=== PATIENT | male | born 1955 | race Caucasian/White ===

== ENCOUNTER 2019-02-21 20:28 | Observation (INO) ==
[2019-02-21] MEDS ORDERED: *HR* FentaNYL (PF) 100 MCG/2 ML VIAL IVP ONE (20:48)
--- NOTE | 2019-02-21 20:52 | Emergency Department Note ---
Disposition Clinical Impression: Cellulitis Qualifiers: Site of cellulitis: extremity Site of cellulitis of extremity: upper extremity Laterality: left Qualified Code(s): L03.114 - Cellulitis of left upper limb Disposition: Admitted As Inpatient Condition: Fair Instructions: Cellulitis (ED) Referrals: Geoffrey Suazo DO [Primary Care Provider] - Forms: ED Satisfaction Letter Time of Disposition: 22:21 Fever HPI - General Chief Complaint: ED Extremity Problem,Nontraumatic Stated Complaint: L Hand/arm pain Time Seen by Provider: 02/21/19 20:37 Source: patient Limitations: language barrier Nursing Notes Reviewed: Yes Vital Signs Reviewed: Yes - History of Present Illness HPI Narrative: 63-year-old male presents for evaluation of fever, lethargy, and swollen left upper extremity. Patient noticed redness and swelling to his arm yesterday. He today developed fever and according to significant other has been lethargic and sleeping all day in bed. Patient has mild to moderate amount of pain located to his wrist forearm. - Related Data Home Medications Medication Instructions Recorded Confirmed Albuterol Sulfate [Proair Hfa] 2 puff IH Q4H PRN 03/17/17 02/21/19 Benazepril/Hydrochlorothiazide 1 tab PO DAILY 03/17/17 02/21/19 [Lotensin Hct 20-12.5 mg Tablet] FluocinoNIDE 0.05% CRM [Lidex] 1 appl TP BID PRN 03/17/17 02/21/19 Pantoprazole Sodium [Protonix] 40 mg PO DAILY 03/17/17 02/21/19 Simvastatin [Zocor] 20 mg PO HS 03/17/17 02/21/19 amLODIPine [Norvasc] 5 mg PO DAILY 03/17/17 02/21/19 Previous Rx's Medication Instructions Recorded Metoprolol XL (24 HR) Succ [Toprol 25 mg PO DAILY #20 tab.er.24h 03/19/17 Xl] Allergies Allergy/AdvReac Type Severity Reaction Status Date / Time No Known Allergies Allergy Verified 02/21/19 20:45 Review of Systems: Constitutional: See history of present illness HENT: [Negative for congestion.] Eyes: [Negative for discharge.] Respiratory: [Negative for shortness of breath.] Cardiovascular: [Negative for chest pain.] Gastrointestinal: [Negative for nausea, vomiting, abdominal pain and diarrhea.] Endocrine: [Negative for excessive thirst,urination] Genitourinary: [Negative for dysuria and frequency.] Musculoskeletal: [Negative for myalgias and arthralgias.] Skin: See The history of present illness Neurological: [Negative for dizziness, localized weakness and headaches.] Psychiatric/Behavioral: [Negative for nervous/anxious.] All other systems reviewed and are negative. Fever PMH - Past Medical History Medical history: Reports: CVA, hyperlipidemia, hypertension, TIA Surgical history: Reports: no surgical history Psychiatric history: Reports: no psych history - Social History Smoking Status: Current every day smoker Alcohol use: Reports: none Drug use: Reports: none Physical Exam Constitutional: Patient is [alert], [healthy], [comfortable and asymptomatic] and cooperative. HENT: Head: Normocephalic and atraumatic. Right Ear: External ear normal. Left Ear: External ear normal. Nose: Nose without discharge Mouth/Throat: Mucous membranes show good hydration Eyes: Conjunctivae and EOM are normal. Pupils are round and equal. Right eye exhibits no discharge. Left eye exhibits no discharge. Neck: Normal range of motion and phonation normal. Neck supple. Pulmonary/Chest: Effort normal. No stridor. No tachypnea. No respiratory distress. Musculoskeletal: Normal range of motion of all unaffected extremeties. Left upp er extremity shows significant warmth to touch. He has erythema and induration of the skin from his hand all the way up the dorsal arm to his elbow. Neurological: Patient is alert and awake. Patient moves all 4 extremities equally. There is no atrophy and no tremor. No gross cranial nerve deficit and there exhibits normal muscle tone. Coordination normal grossly. Skin: Skin is warm and dry. No erythema. No rash noted Psychiatric: Patient has a normal mood and affect. Course Course Narrative: [ ] Discussed diagnosis and further treatment plans with patient [and significant other]. Questions addressed. Patient was discussed with Dr. King who agrees with admission for observation status for overnight antibiotics Vital Signs Temperature 100.4 F H 02/21/19 20:39 Pulse Rate 116 02/21/19 20:39 Respiratory Rate 28 02/21/19 20:39 Blood Pressure 188/122 02/21/19 20:39 O2 Sat by Pulse Oximetry 96 02/21/19 20:39 Temperature 100.4 F H 02/21/19 20:39 Pulse Rate 74 02/21/19 22:02 Respiratory Rate 18 02/21/19 22:02 Blood Pressure 158/91 02/21/19 22:02 O2 Sat by Pulse Oximetry 96 02/21/19 20:39 Oxygen Delivery Oxygen Delivery Room Air Fever - Differential Diagnosis Likely: cellulitis, sepsis, SIRS. Unlikely: community acquired pneumonia, pyelonephritis, viral infection, influenza - Lab Data Lab results reviewed: Yes I reviewed the patient's lab results. Result diagrams: 02/21/19 21:10 02/21/19 21:10 Lab Results 02/21/19 02/21/19 02/21/19 Range/Units 21:10 21:10 21:10 WBC 13.6 H (4.3-11.1) K/mcL RBC 4.49 (4.19-5.50) M/mcL Hgb 14.8 (12.9-16.9) g/dL Hct 42.6 (37.5-50.1) % MCV 94.9 (83.0-100.0) fL MCH 33.0 (28.0-33.3) pg MCHC 34.7 (31.6-35.5) g/dL RDW 12.0 (11.5-14.5) % Plt Count 179 (140-400) K/mcL MPV 10.5 (9.4-12.4) fL Immature Gran % 0.4 (0-4) % Seg Neutrophils % 77.2 % Lymphocytes % 14.3 % Monocytes % 6.8 % Eosinophils % 0.7 % Basophils % 0.6 % Neutrophils # 10.5 H (1.6-8.9) K/mcL Lymphocytes # 1.9 (0.6-4.6) K/mcL Monocytes # 0.9 (0.0-1.3) K/mcL Eosinophils # 0.1 (0.0-0.6) K/mcL Basophils # 0.1 (0.0-0.2) K/mcL Sodium 133 L (136-145) mEq/L Potassium 3.5 (3.5-5.1) mEq/L Chloride 101 (98-107) mEq/L Carbon Dioxide 22 L (23-29) mEq/L BUN 13 (8-23) mg/dL Creatinine 1.09 (0.70-1.30) mg/dL Est GFR ( Amer) > 60 (> 60) Est GFR (Non-Af Amer) > 60 (> 60) BUN/Creatinine Ratio 12 (6-26) Glucose 148 H (70-105) mg/dL Calculated Osmolality 279 L (280-300) Lactic Acid 1.0 (0.5-2.2) mmol/L Calcium 9.2 (8.6-10.3) mg/dL Total Bilirubin 0.7 (0.3-1.0) mg/dL Direct Bilirubin 0.2 (0.0-0.2) mg/dL Indirect Bilirubin 0.5 (0.0-1.2) mg/dL AST 17 (13-39) Units/L ALT 34 (7-52) Units/L Alkaline Phosphatase 66 (34-104) Units/L Serum Total Protein 6.7 (6.4-8.9) g/dL Albumin 4.1 (3.5-5.7) g/dL Globulin 2.6 (2.4-3.5) g/dL Albumin/Globulin Ratio 1.6 (1.1-2.2)
[2019-02-21 21:25] LABS: Basophils # 0.1 K/mcL (0.0-0.2); Basophils % 0.6 %; Eosinophils # 0.1 K/mcL (0.0-0.6); Eosinophils % 0.7 %; Hematocrit 42.6 % (37.5-50.1); Hemoglobin 14.8 g/dL (12.9-16.9); Immature Granulocytes % 0.4 % (0-4); Lymphocytes # 1.9 K/mcL (0.6-4.6); Lymphocytes % 14.3 %; Mean Corpuscular HGB Conc 34.7 g/dL (31.6-35.5); Mean Corpuscular Volume 94.9 fL (83.0-100.0); Mean Platelet Volume 10.5 fL (9.4-12.4); Monocytes # 0.9 K/mcL (0.0-1.3); Monocytes % 6.8 %; Neutrophils # 10.5 K/mcL (1.6-8.9); Platelet Count 179 K/mcL (140-400); Red Blood Count 4.49 M/mcL (4.19-5.50); Segmented Neutrophils % 77.2 %; White Blood Count 13.6 K/mcL (4.3-11.1)
[2019-02-21 21:40] LABS: Alanine Aminotransferase 34 Units/L (7-52); Albumin 4.1 g/dL (3.5-5.7); Albumin/Globulin Ratio 1.6 (1.1-2.2); Alkaline Phosphatase 66 Units/L (34-104); Aspartate Amino Transferase 17 Units/L (13-39); BUN/Creatinine Ratio 12 (6-26); Bilirubin,Direct 0.2 mg/dL (0.0-0.2); Bilirubin,Indirect 0.5 mg/dL (0.0-1.2); Bilirubin,Total 0.7 mg/dL (0.3-1.0); Blood Urea Nitrogen 13 mg/dL (8-23); Calcium 9.2 mg/dL (8.6-10.3); Carbon Dioxide 22 mEq/L (23-29); Chloride 101 mEq/L (98-107); Globulin 2.6 g/dL (2.4-3.5); Glucose 148 mg/dL (70-105); Osmolality,Calculated 279 (280-300); Potassium 3.5 mEq/L (3.5-5.1); Sodium 133 mEq/L (136-145); Total Protein 6.7 g/dL (6.4-8.9); eGFR For African Americans > 60 (> 60); eGFR For Non-African Americans > 60 (> 60)
[2019-02-21] MEDS ORDERED: Naloxone 0.4 MG/ML INJ IVP PRN (22:12)
[2019-02-21] MEDS ORDERED: FluocinoNIDE 0.05% CRM 15 GM TUBE TP PRN (22:18)
[2019-02-22] MEDS ORDERED: Naloxone 0.4 MG/ML INJ IVP PRN (08:49)
[2019-02-22 09:18] LABS: Basophils # 0.1 K/mcL (0.0-0.2); Eosinophils # 0.1 K/mcL (0.0-0.6); Eosinophils % 0.5 %; Hemoglobin 13.9 g/dL (12.9-16.9); Immature Granulocytes % 0.3 % (0-4); Lymphocytes # 1.2 K/mcL (0.6-4.6); Mean Corpuscular HGB Conc 34.8 g/dL (31.6-35.5); Mean Platelet Volume 10.2 fL (9.4-12.4); Monocytes # 0.8 K/mcL (0.0-1.3); Monocytes % 7.3 %; Neutrophils # 9.3 K/mcL (1.6-8.9); Platelet Count 158 K/mcL (140-400); Red Blood Count 4.21 M/mcL (4.19-5.50); Segmented Neutrophils % 80.9 %; White Blood Count 11.5 K/mcL (4.3-11.1)
[2019-02-22] MEDS: Metoprolol XL (24 HR) Succ 25 MG TAB.ER.24H PO SCH (10:57)
[2019-02-22] MEDS: amLODIPine 5 MG TABLET PO SCH (10:57)
[2019-02-22] MEDS: Lisinopril-HCTZ 20-12.5mg TABLET PO SCH (10:57)
--- NOTE | 2019-02-22 12:02 | Internal Med History&Physical ---
Date of Encounter: 02/22/19 Time of Encounter: 11:58 Assessment and Plan (1) Cellulitis Current visit: Yes Status: Acute Continue IV antibiotics. Monitor. Qualifiers: Site of cellulitis: extremity Site of cellulitis of extremity: upper extremity Laterality: left Qualified Code(s): L03.114 - Cellulitis of left upper limb (2) HTN (hypertension), benign Current visit: Yes Status: Chronic Controlled with current medication. Monitor. Internal Medicine - H&P: HPI Admitted From: Home Plans for Post Hospital Care: Home History of present illness: Mr. Walters is a 63 year old male admitted to unit for observation after presenting to the emergency room last night for for evaluation of fever, lethargy, and swollen left upper extremity. Painful to touch. Patient noticed redness and swelling to his arm 2 days ago. States he was also very lethargic and all day. Unaware of any injury or bite or wound. Currently lying in bed denies fever, chills, nausea vomiting or diarrhea. Denies shortness of breath or chest pain. Has received IV antibiotics. D dimer was elevated, will order further testing. Lives at home with and 3 dogs. is a 1.5-2 pk per day smoker for the past 40 years. Nurse reports patient had confusion yesterday and did not know any of his medications. Patient is able to recall all medications and is alert and oriented today. Has history of CVA and TIAs, hypertension, hyperlipidemia and Gerd. Past Med Surg Social Fam HX - Past Medical History Medical history: CVA, GERD, hyperlipidemia, hypertension, TIA Additional medical history: Smoker Psychiatric history: no psych history - Past Surgical History Surgical History: no surgical history - Social History Smoking Status: Current every day smoker Smokeless Tobacco Status: No Alcohol use: none Drug use: none - Family History Mother Living Status: Hx Family Cancer: Yes (Cervical Cancer) Father Living Status: Hx Family Cardiac Disorders: Yes (Multiple MN's) Internal Medicine - H&P: Meds Albuterol Sulfate [Proair Hfa] 2 puff IH Q4H PRN 03/17/17 [History] Benazepril/Hydrochlorothiazide [Lotensin Hct 20-12.5 mg Tablet] 1 tab PO DAILY 03/17/17 [History] FluocinoNIDE 0.05% CRM [Lidex] 1 appl TP BID PRN 03/17/17 [History] Pantoprazole Sodium [Protonix] 40 mg PO DAILY 03/17/17 [History] Simvastatin [Zocor] 20 mg PO HS 03/17/17 [History] amLODIPine [Norvasc] 5 mg PO DAILY 03/17/17 [History] Metoprolol XL (24 HR) Succ [Toprol Xl] 25 mg PO DAILY #20 tab.er.24h 03/19/17 [Rx] Aspirin [[place] Aspirin EC] 81 mg PO DAILY 02/21/19 [History] Allergy/AdvReac Type Severity Reaction Status Date / Time No Known Allergies Allergy Verified 02/21/19 20:45 All Systems PM: A 10-system review of systems was performed and is negative for pertinent findings except as documented above in the HPI. - Constitutional Constitutional: no chills, no fever(s), no night sweats - EENT Eyes: no change in vision, no discharge, no pain, no photophobia Ears: no ear discharge, no ear pain, no tinnitus Nose, mouth and throat: no dysphagia, no nasal discharge, no neck pain, no sore throat - Cardiovascular Cardiovascular ROS IM: no chest pain, no diaphoresis, no dyspnea, no lightheadedness, no palpitations, no syncope - Respiratory Respiratory: no cough, no dyspnea, no wheezing, no excessive phlegm production - Gastrointestinal Gastrointestinal: no abdominal pain, no diarrhea, no hematemesis, no hematochezia, no melena, no nausea, no vomiting - Musculoskeletal Musculoskeletal ROS IM: no numbness, no tingling - Integumentary Integumentary IM: no rash, no unusual bruising - Neurological Neurological ROS: no confusion, no convulsions, no focal weakness, no numbness, no tingling, no tremor(s) - Hematologic/Lymphatic Hematologic/Lymphatic: no easy bruising - Constitutional Vitals: Temp Pulse Resp BP Pulse Ox 98.7 F 69 16 147/72 98 02/22/19 07:55 02/22/19 07:55 02/22/19 07:55 02/22/19 07:55 02/22/19 07:55 General appearance: Present: cooperative, A&O X 3, pleasant, no acute distress, answers questions appropriately - Head Head exam: Present: atraumatic, normocephalic - Eye Eye exam: Present: PERRL, conjuntiva pink, sclera anicteric Pupils: Present: PERRL - Neck Neck exam general surgery: Present: supple, trachea midline. Absent: lymp hadenopathy - Respiratory Respiratory exam: Absent: accessory muscle use, rales, rhonchi, wheezes Additional comments: Scattered fine expiratory wheezes - Cardiovascular Cardiovascular exam: Present: RRR, +S1, +S2. Absent: diastolic murmur, gallop, rubs, systolic murmur - GI/Abdominal GI/Abdominal exam: Present: normal bowel sounds, soft, no peritoneal signs. Absent: distended, tenderness - Extremities Exam Extremities exam: Present: warm, radial pulses palpable and symmetrical. Absent: calf tenderness, cyanotic, pedal edema - Neurological Exam Neurological exam: Present: CN II-XII intact, oriented X3, no focal deficits. Absent: pronater drift, facial droop, speech deficit - Skin Skin exam: Present: dry, intact Internal Med - H&P Results - Labs CBC & Chem 7: 02/22/19 09:10 02/21/19 21:10 Labs: Short CBC 02/21/19 02/22/19 Range/Units 21:10 09:10 WBC 13.6 H 11.5 H (4.3-11.1) K/mcL Hgb 14.8 13.9 (12.9-16.9) g/dL Hct 42.6 40.0 (37.5-50.1) % Plt Count 179 158 (140-400) K/mcL Neutrophils # 10.5 H 9.3 H (1.6-8.9) K/mcL BMP 02/21/19 21:10 Sodium 133 L Potassium 3.5 Chloride 101 Carbon Dioxide 22 L BUN 13 Creatinine 1.09 Glucose 148 H Calcium 9.2 Liver Function 02/21/19 Range/Units 21:10 Total Bilirubin 0.7 (0.3-1.0) mg/dL Direct Bilirubin 0.2 (0.0-0.2) mg/dL AST 17 (13-39) Units/L ALT 34 (7-52) Units/L Alkaline Phosphatase 66 (34-104) Units/L Albumin 4.1 (3.5-5.7) g/dL - Impressions ITS Impressions Head CT 02/22/19 09:00 IMPRESSION: No acute intracranial abnormality. D/ / Sunny Cuellar MD / Sunny Cuellar MD Interpreting Provider: Sunny Cuellar MD
[2019-02-22] MEDS: Nicotine 21 MG PATCH.TD24 TD SCH (14:16)
--- NOTE | 2019-02-22 17:40 | Electrocardiograph Report ---
[address] [address] Test Date: 2019-02-21 Pat Name: Izaiah Walters Department: EDG1 Room: 119 Gender: M Lead Dental Assistant: : 1955 Requested By: Geoffrey Stone Order Number: [id number] Reading MD: Jose Velasquez Measurements Intervals [place] Rate: 97 P: 46 NC: 153 QRS: 132 QRSD: 106 T: -18 QT: 343 QTc: 436 Interpretive Statements Sinus rhythm Left atrial enlargement Left posterior fascicular block Electronically Signed On 02-22-2019 17:39:16 EDT by Jose Velasquez
[2019-02-22] MEDS ORDERED: *HR* Enoxaparin 40 MG/0.4 ML SYRINGE SQ SCH (20:30)
[2019-02-22] MEDS: cefTRIAXone 1,000 MG in Water for inj. (sterile) 10 ML IVP SCH (22:50)
[2019-02-23] MEDS: Nicotine 21 MG PATCH.TD24 TD SCH (08:54)
[2019-02-23] MEDS: amLODIPine 5 MG TABLET PO SCH (08:54)
[2019-02-23] MEDS: Lisinopril-HCTZ 20-12.5mg TABLET PO SCH (08:54)
[2019-02-23] MEDS: Metoprolol XL (24 HR) Succ 25 MG TAB.ER.24H PO SCH (08:54)
[2019-02-23] MEDS: cefTRIAXone 1,000 MG in Water for inj. (sterile) 10 ML IVP SCH (08:55)
[2019-02-23] MEDS ORDERED: Nicotine 21 MG PATCH.TD24 TD SCH (09:00)
--- NOTE | 2019-02-23 10:47 | Discharge Summary ---
Orders not resulted at time of discharge: Pending orders 02/21/19 21:10 Culture,Blood [BC] Stat Date of Encounter: 02/23/19 Time of Encounter: 10:45 - Discharge Diagnosis (1) Cellulitis Priority: Primary Status: Acute Comments: Keflex 1000 mg PO BID. Improving. Follow up with PCP within one week. Qualifiers: Site of cellulitis: extremity Site of cellulitis of extremity: upper extremity Laterality: left Qualified Code(s): L03.114 - Cellulitis of left upper limb (2) HTN (hypertension), benign Priority: Secondary Status: Chronic Comments: Controlled with current medication. Monitor blood pressure. Follow up with PCP. (3) Tobacco use disorder Priority: Secondary Status: Acute Comments: Discussed smoking cessation. Continue nicotine patch 21 mg every 24 hours. Follow up with PCP in one week. Instructed not to smoke while patches on. Hospital course: Mr. Walters is a 63 year old male Discharge discussed with: patient, family, nurse, social work Time spent discussing smoking cessation with patient: 3 to 10 minutes - Time Spent with Patient Total time spent providing and/or coordinating discharge services: Time spent: Less than 30 minutes - Discharge Medications Prescriptions: No Action amLODIPine [Norvasc] 5 mg PO DAILY Simvastatin [Zocor] 20 mg PO HS Pantoprazole Sodium [Protonix] 40 mg PO DAILY FluocinoNIDE 0.05% CRM [Lidex] 1 appl TP BID PRN PRN Reason: Itching Benazepril/Hydrochlorothiazide [Lotensin Hct 20-12.5 mg Tablet] 1 tab PO DAILY Albuterol Sulfate [Proair Hfa] 2 puff IH Q4H PRN PRN Reason: Shortness Of Breath Metoprolol XL (24 HR) Succ [Toprol Xl] 25 mg PO DAILY #20 tab.er.24h Aspirin [[place] Aspirin EC] 81 mg PO DAILY Home Medications: Albuterol Sulfate [Proair Hfa] 2 puff IH Q4H PRN 03/17/17 [History] Benazepril/Hydrochlorothiazide [Lotensin Hct 20-12.5 mg Tablet] 1 tab PO DAILY 03/17/17 [History] FluocinoNIDE 0.05% CRM [Lidex] 1 appl TP BID PRN 03/17/17 [History] Pantoprazole Sodium [Protonix] 40 mg PO DAILY 03/17/17 [History] Simvastatin [Zocor] 20 mg PO HS 03/17/17 [History] amLODIPine [Norvasc] 5 mg PO DAILY 03/17/17 [History] Metoprolol XL (24 HR) Succ [Toprol Xl] 25 mg PO DAILY #20 tab.er.24h 03/19/17 [Rx] Aspirin [[place] Aspirin EC] 81 mg PO DAILY 02/21/19 [History] Acetaminophen [Tylenol] 1,000 mg PO Q6HR PRN tablet 02/23/19 [Rx] Nicotine Patch [Nicoderm] 21 mg TD DAILY #14 patch.td24 02/23/19 [Rx] Allergies/Adverse Reactions: Allergy/AdvReac Type Severity Reaction Status Date / Time No Known Allergies Allergy Verified 02/21/19 20:45 Date of admission: 02/21/19 22:22 Primary care physician: Geoffrey Suazo DO Discharging clinician: Alexander Gill Anticipated date of discharge: 02/23/19 - Constitutional Vitals: Temp Pulse Resp BP Pulse Ox 97.7 F 54 16 127/75 98 02/23/19 06:55 02/23/19 06:55 02/23/19 06:55 02/23/19 06:55 02/23/19 06:55 General appearance: Present: cooperative, A&O X 3, pleasant, no acute distress, answers questions appropriately - Head Head exam: Present: atraumatic, normocephalic - Eye Eye exam: Present: PERRL, conjuntiva pink, sclera anicteric Pupils: Present: PERRL - Neck Neck exam general surgery: Present: supple, trachea midline. Absent: lymphadenopathy - Respiratory Respiratory exam: Present: CTAB. Absent: accessory muscle use, rales, rhonchi, wheezes - Cardiovascular Cardiovascular exam: Present: RRR, +S1, +S2. Absent: diastolic murmur, gallop, rubs, systolic murmur - GI/Abdominal GI/Abdominal exam: Present: normal bowel sounds, soft, no peritoneal signs. Absent: distended, tenderness - Extremities Exam Extremities exam: Present: warm, radial pulses palpable and symmetrical. Absent: calf tenderness, cyanotic, pedal edema Additional comments: left arm red, no warmth, slight edema, skin intact. - Neurological Exam Neurological exam: Present: CN II-XII intact, oriented X3, no focal deficits. Absent: pronater drift, facial droop, speech deficit - Skin Skin exam: Present: dry, intact - Patient Status Disposition: Home, Self-Care Condition: Good Functional capacity at discharge: independent ambulation Overall status at discharge: patient is progressing back to baseline - Discharge Instructions Follow Up With: Geoffrey Suazo DO [Primary Care Provider] - - Diet and Activity Activity: as per physical therapy, increase activity as tolerated Diet: advance to your usual diet
[2019-02-23 11:48] VITALS: BP 131/88
== END 2019-02-23 14:30 | disposition home or self-care (01) ==
LOC: INPGRE 20:28 → EMEROOGRE 20:28 → INPGRE 22:44
PROVIDERS: ADMIT Internal Medicine; ATTEND Internal Medicine